=== PATIENT | female | born 1950 | race African-American/Black ===

== ENCOUNTER 2022-05-20 05:24 | Inpatient (IN) | payer MEDICARE, OTHER ==
[~2022-05-20] VITALS: Ht 154.9 cm; Wt 89.8 kg
[2022-05-20] VITALS (49 sets, daily range): BP systolic 93–197; BP diastolic 46–134
[~2022-05-20 05:24] MED LIST: ACTOS; ASPIRIN; FUROSEMIDE; GLYBURIDE; KLOR CON; PROTONIX; ROBAXIN; SINGULAIR; TRAMADOL; VICODIN
[2022-05-20] MEDS ORDERED: SODIUM CHLORIDE 0.9% 1,000 ML IV SCH (06:15)
[2022-05-20] MEDS ORDERED: GENTAMICIN SULF 40MG/ML 2ML VIAL ONE (06:49)
[2022-05-20] MEDS ORDERED: THROMBIN (BOVINE) 5000 UNITS/VIAL TOP ONE (06:49)
[2022-05-20] MEDS ORDERED: LIDOCAINE 2%/EPINEPHRINE 1:200,000 20 ML VIAL INJ ONE (06:49)
[2022-05-20] MEDS ORDERED: DEXAMETHASONE 4MG/ML 1ML VIAL ONE (06:52)
[2022-05-20] MEDS ORDERED: ONDANSETRON HCL 4MG/2ML INJ ONE (06:52)
[2022-05-20] MEDS ORDERED: GLYCOPYRROLATE 0.2 MG/ML 2ML VIAL ONE ×3 (06:53→10:24)
[2022-05-20] MEDS ORDERED: NEOSTIGMINE METHYLSULFATE 1MG/ML 10 ML VIAL ONE (06:53)
[2022-05-20] MEDS ORDERED: PROPOFOL 200MG/20ML VIAL IV ONE (06:53)
[2022-05-20] MEDS ORDERED: ROCURONIUM BROMIDE 10MG/ML VIAL 5ML IV ONE (06:53)
[2022-05-20] MEDS ORDERED: MIDAZOLAM HCL 2 MG/2 ML VIAL ONE (06:54)
[2022-05-20] MEDS ORDERED: FENTANYL CITRATE/PF 50MCG/ML 2ML VIAL ONE (06:54)
[2022-05-20] MEDS ORDERED: FLUT1BLS3 IH (07:07)
[2022-05-20] MEDS ORDERED: PRED5TAB PO (07:07)
[2022-05-20] MEDS ORDERED: PANT40TA51 PO (07:07)
[2022-05-20] MEDS ORDERED: ALBU18HF2 IH (07:07)
[2022-05-20] MEDS ORDERED: GLIP5TAB12 PO (07:07)
[2022-05-20] MEDS ORDERED: METH4TAB PO (07:07)
[2022-05-20] MEDS ORDERED: ATOR10TA69 PO (07:07)
[2022-05-20] MEDS ORDERED: LINA5TAB PO (07:07)
[2022-05-20] MEDS ORDERED: AMLO5TAB88 PO (07:07)
[2022-05-20] MEDS ORDERED: LOSA100T32 PO (07:07)
[2022-05-20] MEDS ORDERED: LIDOCAINE HCL 1% 50ML VIAL (10MG/ML) ONE (07:24)
[2022-05-20] MEDS ORDERED: HYDROMORPHONE HCL/PF 2MG/ML CPJ ONE (08:05)
[2022-05-20] MEDS ORDERED: MORPHINE SULFATE 4 MG/ML CPJ (NOT FOR IM USE) IV PRN (10:15)
[2022-05-20] MEDS: DEXT 5%/LACTATED RINGERS 1,000 ML IV SCH ×2 (11:24→22:07)
[2022-05-20] MEDS: DEXAMETHASONE 4MG/ML 1ML VIAL IV SCH ×3 (11:43→22:45)
[2022-05-20] MEDS ORDERED: NALOXONE INJ IV PRN (11:45)
[2022-05-20] MEDS ORDERED: DEXTROSE 50% WATER 50ML SYRINGE IV PRN (12:30)
[2022-05-20] MEDS ORDERED: IPRATROPIUM/ALBUTEROL 0.5-3(2.5)MG/3ML NEB HHN PRN (12:30)
[2022-05-20] MEDS: HYDROMORPHONE PCA 10MG/50ML IV PRN (12:32)
[2022-05-20] MEDS: NICARDIPINE 100 MG in SODIUM CHLORIDE 0.9% 60 ML IV PRN (12:35)
[2022-05-20] MEDS: ONDANSETRON INJ IV PRN ×2 (13:42→23:50)
[2022-05-20] MEDS ORDERED: CEFAZOLIN 1000MG PREMIX 50 ML IV SCH (14:00)
[2022-05-20] MEDS ORDERED: CEFAZOLIN SODIUM 1000MG/VIAL IV SCH (14:00)
[2022-05-20] MEDS: LOSARTAN POTASSIUM 50 MG TABLET PO SCH (17:20)
[2022-05-20] MEDS: BLOOD SUGAR DIAGNOSTIC STRIP TEST SCH ×2 (17:20→20:32)
[2022-05-20] MEDS: INSULIN LISPRO 100 UNITS/ML SUBCUT SCH ×2 (17:21→20:32)
[2022-05-20] MEDS: IPRATROPIUM/ALBUTEROL 0.5-3(2.5)MG/3ML NEB HHN SCH (19:56)
[2022-05-20] MEDS: PANTOPRAZOLE 40MG DR TABLET PO SCH (20:31)
[2022-05-20] MEDS: GUAIFENESIN 600MG ER TABLET PO SCH (20:31)
[2022-05-20] MEDS: ATORVASTATIN CALCIUM 10MG TABLET PO SCH (20:31)
[2022-05-20] MEDS: CEFAZOLIN 1000MG PREMIX 50 ML IV SCH (22:46)
[2022-05-20] MEDS ORDERED: MORPHINE SULFATE 4 MG/ML CPJ (NOT FOR IM USE) IV NR (23:45)
[2022-05-21] VITALS (46 sets, daily range): BP systolic 107–162; BP diastolic 42–109
[2022-05-21] MEDS ORDERED: ACETAMINOPHEN 325MG TABLET PO PRN (00:15)
[2022-05-21] MEDS: IPRATROPIUM/ALBUTEROL 0.5-3(2.5)MG/3ML NEB HHN SCH ×4 (01:16→20:15)
[2022-05-21] MEDS: HYDROMORPHONE PCA 10MG/50ML IV PRN (02:31)
[2022-05-21] MEDS: DIPHENHYDRAMINE 50MG/ML VIAL IV PRN (02:35)
[2022-05-21] MEDS: NICARDIPINE 100 MG in SODIUM CHLORIDE 0.9% 60 ML IV PRN (04:39)
[2022-05-21 05:59] LABS: HEMATOCRIT. 32.7 % (36.0-48.0); HEMOGLOBIN. 10.1 g/dL (12.0-16.0); MEAN CORPUSCULAR HEMOGLOBIN 22.7 pg (28.0-32.0); MEAN CORPUSCULAR VOLUME 73.4 fL (81.0-99.0); PLATELET 258 x1000/uL (130-400); RED BLOOD CELL COUNT 4.46 mill/uL (4.2-5.4)
[2022-05-21 06:07] LABS: CHLORIDE 102 mEq/L (98-107)
[2022-05-21] MEDS: DEXAMETHASONE 4MG/ML 1ML VIAL IV SCH ×4 (06:09→23:14)
[2022-05-21] MEDS: CEFAZOLIN 1000MG PREMIX 50 ML IV SCH ×3 (06:09→23:49)
[2022-05-21] MEDS: BLOOD SUGAR DIAGNOSTIC STRIP TEST SCH ×4 (06:09→21:00)
[2022-05-21] MEDS: INSULIN LISPRO 100 UNITS/ML SUBCUT SCH ×4 (06:10→22:22)
[2022-05-21 06:36] LABS: HDL CHOLESTEROL 49 mg/dL (40-59); LDL CHOLESTEROL 48 mg/dL (5-100)
[2022-05-21] MEDS: LOSARTAN POTASSIUM 50 MG TABLET PO SCH ×2 (08:38→17:08)
[2022-05-21] MEDS: DEXT 5%/LACTATED RINGERS 1,000 ML IV SCH (08:38)
[2022-05-21] MEDS: GUAIFENESIN 600MG ER TABLET PO SCH ×2 (08:38→21:00)
[2022-05-21] MEDS ORDERED: AMLODIPINE 5MG TABLET PO SCH (09:00)
[2022-05-21] MEDS ORDERED: HYDROCODONE/ACETAMINOPHEN 10/325MG TABLET PO PRN (09:30)
[2022-05-21] MEDS ORDERED: POTASSIUM CHLORIDE 20MEQ/PACKET PO NR (09:30)
[2022-05-21] MEDS ORDERED: NALOXONE HCL 0.4MG/ML VIAL IV PRN (09:45)
[2022-05-21] MEDS: HYDROCODONE/ACETAMINOPHEN 10/325MG TABLET PO PRN ×2 (10:13→17:08)
[2022-05-21] MEDS: CLONIDINE 0.1MG TABLET PO SCH ×3 (10:16→22:46)
[2022-05-21] MEDS ORDERED: SIMETHICONE 80MG TABLET CHEW PO PRN (11:15)
[2022-05-21] MEDS: MORPHINE SULFATE 2 MG/ML CPJ (NOT FOR IM USE) IV PRN ×2 (11:46→23:15)
[2022-05-21] MEDS: ONDANSETRON INJ IV PRN (15:42)
[2022-05-21] MEDS: HYDROCODONE/ACETAMINOPHEN 5/325MG TABLET PO PRN (15:52)
[2022-05-21] MEDS: AMLODIPINE 5MG TABLET PO SCH (17:08)
[2022-05-21] MEDS ORDERED: ONDANSETRON HCL 4MG/2ML INJ IV NR (18:00)
[2022-05-21] MEDS ORDERED: METOCLOPRAMIDE HCL 5MG TABLET PO PRN (18:00)
[2022-05-21] MEDS: METOCLOPRAMIDE HCL 10MG/2ML VIAL IV PRN (20:00)
[2022-05-21] MEDS: PANTOPRAZOLE 40MG DR TABLET PO SCH (21:00)
[2022-05-21] MEDS ORDERED: INSULIN GLARGINE 100 UNITS/ML SUBCUT SCH (22:00)
[2022-05-21 22:08] LABS: PLATELET ESTIMATE NORMAL
[2022-05-21] MEDS: ATORVASTATIN CALCIUM 10MG TABLET PO SCH (22:45)
[2022-05-22] MEDS: HYDROCODONE/ACETAMINOPHEN 10/325MG TABLET PO PRN ×2 (01:27→18:16)
[2022-05-22] MEDS: IPRATROPIUM/ALBUTEROL 0.5-3(2.5)MG/3ML NEB HHN SCH (01:54)
[2022-05-22] MEDS: CEFAZOLIN 1000MG PREMIX 50 ML IV SCH ×3 (05:22→22:49)
[2022-05-22] MEDS: DEXAMETHASONE 4MG/ML 1ML VIAL IV SCH ×2 (05:22→12:15)
[2022-05-22] MEDS: CLONIDINE 0.1MG TABLET PO SCH (05:23)
[2022-05-22] MEDS: BLOOD SUGAR DIAGNOSTIC STRIP TEST SCH ×4 (07:20→21:00)
[2022-05-22 08:00] VITALS: BP_SYST 110; BP_SYST 125; BP_DIAS 50; BP_DIAS 64
[2022-05-22 08:26] LABS: CHLORIDE 97 mEq/L (98-107)
[2022-05-22] MEDS: GUAIFENESIN 600MG ER TABLET PO SCH ×2 (09:09→21:00)
[2022-05-22] MEDS: INSULIN LISPRO 100 UNITS/ML SUBCUT SCH ×4 (09:10→21:00)
[2022-05-22] MEDS: INSULIN GLARGINE 100 UNITS/ML SUBCUT SCH ×2 (09:37→22:00)
[2022-05-22 11:21] LABS: BASOPHILS % 0.1 % (0.0-2.0); HEMATOCRIT. 32.6 % (36.0-48.0); HEMOGLOBIN. 10.3 g/dL (12.0-16.0); LYMPHOCYTES % 7.8 % (20.0-50.0); MEAN CORPUSCULAR HEMOGLOBIN 22.8 pg (28.0-32.0); MEAN CORPUSCULAR VOLUME 72.3 fL (81.0-99.0); MEAN PLATELET VOLUME 9.2 fl (7.4-10.4); MONOCYTES % 4.3 % (2.0-8.0); NEUTROPHILS % 87.8 % (40.0-76.0); PLATELET 280 x1000/uL (130-400); RED BLOOD CELL COUNT 4.51 mill/uL (4.2-5.4); RED CELL DISTRIBUTION WIDTH 16.1 % (11.6-14.6)
[2022-05-22 12:00] VITALS: BP 158/81
[2022-05-22] MEDS: HYDROCODONE/ACETAMINOPHEN 5/325MG TABLET PO PRN (12:14)
[2022-05-22] MEDS: LOSARTAN POTASSIUM 50 MG TABLET PO SCH ×2 (12:15→17:35)
[2022-05-22] MEDS: AMLODIPINE 5MG TABLET PO SCH ×2 (12:15→17:35)
[2022-05-22] MEDS: CLONIDINE 0.2MG TABLET PO SCH ×2 (13:05→22:00)
[2022-05-22 16:00] VITALS: BP 123/78
[2022-05-22] MEDS: DOCUSATE SODIUM 100MG CAPSULE PO SCH (17:00)
[2022-05-22] MEDS: POLYETHYLENE GLYCOL 3350 (17GM) 1 DOSE PACK PO SCH (17:35)
[2022-05-22 20:00] VITALS: BP 126/96
[2022-05-22] MEDS: ATORVASTATIN CALCIUM 10MG TABLET PO SCH (21:00)
[2022-05-22] MEDS: PANTOPRAZOLE 40MG DR TABLET PO SCH (21:00)
[2022-05-23] VITALS: BP 130/81
[2022-05-23] MEDS: HYDROCODONE/ACETAMINOPHEN 10/325MG TABLET PO PRN ×2 (00:26→21:36)
[2022-05-23] MEDS: DIPHENHYDRAMINE 50MG/ML VIAL IV PRN ×2 (03:00→20:53)
[2022-05-23 04:00] VITALS: BP 128/80
[2022-05-23] MEDS: CLONIDINE 0.2MG TABLET PO SCH ×3 (06:00→20:46)
[2022-05-23] MEDS: BLOOD SUGAR DIAGNOSTIC STRIP TEST SCH ×4 (06:20→20:46)
[2022-05-23 07:30] LABS: BASOPHILS % 0.1 % (0.0-2.0); HEMATOCRIT. 33.9 % (36.0-48.0); HEMOGLOBIN. 10.7 g/dL (12.0-16.0); LYMPHOCYTES % 11.8 % (20.0-50.0); MEAN CORPUSCULAR HEMOGLOBIN 22.9 pg (28.0-32.0); MEAN CORPUSCULAR VOLUME 72.2 fL (81.0-99.0); MEAN PLATELET VOLUME 8.7 fl (7.4-10.4); MONOCYTES % 10.3 % (2.0-8.0); NEUTROPHILS % 77.8 % (40.0-76.0); PLATELET 294 x1000/uL (130-400); RED BLOOD CELL COUNT 4.69 mill/uL (4.2-5.4); RED CELL DISTRIBUTION WIDTH 15.9 % (11.6-14.6)
[2022-05-23 07:39] LABS: CHLORIDE 101 mEq/L (98-107)
[2022-05-23] MEDS: INSULIN LISPRO 100 UNITS/ML SUBCUT SCH ×4 (07:50→20:46)
[2022-05-23 08:00] VITALS: BP 178/62
[2022-05-23] MEDS: ONDANSETRON INJ IV PRN (08:11)
[2022-05-23] MEDS: LOSARTAN POTASSIUM 50 MG TABLET PO SCH ×2 (08:25→17:00)
[2022-05-23] MEDS: AMLODIPINE 5MG TABLET PO SCH ×2 (08:26→17:00)
[2022-05-23] MEDS: POLYETHYLENE GLYCOL 3350 (17GM) 1 DOSE PACK PO SCH (09:00)
[2022-05-23] MEDS: GUAIFENESIN 600MG ER TABLET PO SCH ×2 (09:00→20:50)
[2022-05-23] MEDS: DOCUSATE SODIUM 100MG CAPSULE PO SCH ×2 (09:00→17:00)
[2022-05-23] MEDS ORDERED: NA PHOS,M-B/NA PHOS,DI-BA ENEMA 118ML PR ONE (09:45)
[2022-05-23] MEDS: INSULIN GLARGINE 100 UNITS/ML SUBCUT SCH ×2 (10:00→20:58)
[2022-05-23] MEDS ORDERED: POTASSIUM CHLORIDE 20MEQ/PACKET PO ONE (10:15)
[2022-05-23] MEDS: MORPHINE SULFATE 2 MG/ML CPJ (NOT FOR IM USE) IV PRN ×4 (10:51→23:46)
[2022-05-23] MEDS: METOCLOPRAMIDE HCL 10MG/2ML VIAL IV PRN (11:52)
[2022-05-23] MEDS ORDERED: HYDRALAZINE 20MG/ML VIAL IV SCH (13:00)
[2022-05-23] MEDS: SODIUM CHLORIDE 0.45% 1,000 ML IV SCH (13:02)
[2022-05-23] MEDS: HYDRALAZINE 10 MG in SODIUM CHLORIDE 0.9% 49.5 ML IV SCH ×2 (13:56→21:39)
[2022-05-23 16:00] VITALS: BP 150/68
[2022-05-23] MEDS ORDERED: POTASSIUM CHLORIDE INJ 40 MEQ in DEXT 5% WATER 500 ML IV NR ×2 (16:30→18:00)
[2022-05-23] MEDS ORDERED: BISACODYL 10MG SUPP PR PRN (19:15)
[2022-05-23] MEDS ORDERED: SENNOSIDES 8.6MG TABLET PO PRN (19:15)
[2022-05-23 20:00] VITALS: BP 138/73
[2022-05-23] MEDS: ATORVASTATIN CALCIUM 10MG TABLET PO SCH (20:50)
[2022-05-23] MEDS: PANTOPRAZOLE 40MG DR TABLET PO SCH (20:50)
[2022-05-23] MEDS: METOCLOPRAMIDE HCL 10MG/2ML VIAL IV SCH (23:49)
[2022-05-24] VITALS: BP 152/65
[2022-05-24] MEDS: SODIUM CHLORIDE 0.45% 1,000 ML IV SCH ×2 (00:09→13:06)
[2022-05-24] MEDS: HYDROCODONE/ACETAMINOPHEN 5/325MG TABLET PO PRN (02:30)
[2022-05-24 04:00] VITALS: BP 163/61
[2022-05-24] MEDS: ONDANSETRON INJ IV PRN (04:08)
[2022-05-24] MEDS: MORPHINE SULFATE 2 MG/ML CPJ (NOT FOR IM USE) IV PRN ×3 (04:08→19:08)
[2022-05-24] MEDS: METOCLOPRAMIDE HCL 10MG/2ML VIAL IV SCH ×3 (05:25→18:35)
[2022-05-24] MEDS: HYDRALAZINE 10 MG in SODIUM CHLORIDE 0.9% 49.5 ML IV SCH (05:26)
[2022-05-24] MEDS: CLONIDINE 0.2MG TABLET PO SCH (05:26)
[2022-05-24] MEDS: HYDROCODONE/ACETAMINOPHEN 10/325MG TABLET PO PRN ×3 (05:39→21:30)
[2022-05-24] MEDS: BLOOD SUGAR DIAGNOSTIC STRIP TEST SCH ×4 (07:20→21:33)
[2022-05-24 08:00] VITALS: BP 107/55
[2022-05-24] MEDS ORDERED: LACTULOSE 20G/30ML UDC PO NR (08:00)
[2022-05-24] MEDS: DOCUSATE SODIUM 100MG CAPSULE PO SCH ×3 (08:27→18:01)
[2022-05-24] MEDS: POLYETHYLENE GLYCOL 3350 (17GM) 1 DOSE PACK PO SCH (08:28)
[2022-05-24] MEDS: LOSARTAN POTASSIUM 50 MG TABLET PO SCH ×2 (08:29→18:01)
[2022-05-24] MEDS: INSULIN LISPRO 100 UNITS/ML SUBCUT SCH ×4 (08:30→21:31)
[2022-05-24 08:42] LABS: BASOPHILS % 0.1 % (0.0-2.0); EOSINOPHILS % 0.2 % (0.0-5.0); HEMATOCRIT. 33.9 % (36.0-48.0); HEMOGLOBIN. 10.4 g/dL (12.0-16.0); LYMPHOCYTES % 15.9 % (20.0-50.0); MEAN CORPUSCULAR HEMOGLOBIN 22.5 pg (28.0-32.0); MEAN CORPUSCULAR VOLUME 73.1 fL (81.0-99.0); MEAN PLATELET VOLUME 8.8 fl (7.4-10.4); NEUTROPHILS % 74.8 % (40.0-76.0); PLATELET 266 x1000/uL (130-400); RED BLOOD CELL COUNT 4.64 mill/uL (4.2-5.4); RED CELL DISTRIBUTION WIDTH 15.6 % (11.6-14.6)
[2022-05-24 08:48] LABS: CHLORIDE 100 mEq/L (98-107)
[2022-05-24] MEDS: AMLODIPINE 5MG TABLET PO SCH ×2 (09:00→18:10)
[2022-05-24] MEDS: GUAIFENESIN 600MG ER TABLET PO SCH ×2 (09:47→18:11)
[2022-05-24] MEDS: INSULIN GLARGINE 100 UNITS/ML SUBCUT SCH ×2 (09:54→21:32)
[2022-05-24 12:00] VITALS: BP 114/59
[2022-05-24] MEDS: CLONIDINE 0.1MG TABLET PO SCH ×2 (15:00→21:34)
[2022-05-24 16:00] VITALS: BP 120/54
[2022-05-24] MEDS ORDERED: POTASSIUM CHLORIDE 20MEQ/PACKET PO NR (16:45)
[2022-05-24] MEDS ORDERED: SORBITOL 70% SOLN 30ML PO NR (18:00)
[2022-05-24 20:00] VITALS: BP 101/45
[2022-05-24] MEDS: ATORVASTATIN CALCIUM 10MG TABLET PO SCH (21:28)
[2022-05-24] MEDS: PANTOPRAZOLE 40MG DR TABLET PO SCH (21:28)
[2022-05-24] MEDS: DIPHENHYDRAMINE 50MG/ML VIAL IV PRN (21:50)
[2022-05-25] VITALS: BP 126/72
[2022-05-25] MEDS: MORPHINE SULFATE 2 MG/ML CPJ (NOT FOR IM USE) IV PRN ×3 (00:06→10:55)
[2022-05-25] MEDS: METOCLOPRAMIDE HCL 10MG/2ML VIAL IV SCH ×4 (00:08→17:42)
[2022-05-25] MEDS: HYDROCODONE/ACETAMINOPHEN 10/325MG TABLET PO PRN ×4 (03:05→17:35)
[2022-05-25 04:00] VITALS: BP 127/66
[2022-05-25] MEDS: CLONIDINE 0.1MG TABLET PO SCH ×2 (06:21→14:00)
[2022-05-25] MEDS: DIPHENHYDRAMINE 50MG/ML VIAL IV PRN ×2 (06:25→17:41)
[2022-05-25] MEDS: INSULIN LISPRO 100 UNITS/ML SUBCUT SCH ×3 (06:44→17:41)
[2022-05-25] MEDS: BLOOD SUGAR DIAGNOSTIC STRIP TEST SCH ×3 (06:44→17:35)
[2022-05-25 07:43] LABS: BASOPHILS % 0.1 % (0.0-2.0); EOSINOPHILS % 0.6 % (0.0-5.0); HEMATOCRIT. 33.3 % (36.0-48.0); HEMOGLOBIN. 10.6 g/dL (12.0-16.0); LYMPHOCYTES % 16.9 % (20.0-50.0); MEAN CORPUSCULAR HEMOGLOBIN 23.3 pg (28.0-32.0); MEAN CORPUSCULAR VOLUME 73.2 fL (81.0-99.0); MEAN PLATELET VOLUME 8.4 fl (7.4-10.4); MONOCYTES % 11.1 % (2.0-8.0); NEUTROPHILS % 71.3 % (40.0-76.0); PLATELET 264 x1000/uL (130-400); RED BLOOD CELL COUNT 4.55 mill/uL (4.2-5.4); RED CELL DISTRIBUTION WIDTH 15.7 % (11.6-14.6)
[2022-05-25 07:51] LABS: CHLORIDE 102 mEq/L (98-107)
[2022-05-25 08:00] VITALS: BP 122/51
[2022-05-25] MEDS: DOCUSATE SODIUM 100MG CAPSULE PO SCH ×2 (08:37→17:34)
[2022-05-25] MEDS: GUAIFENESIN 600MG ER TABLET PO SCH ×2 (08:37→20:17)
[2022-05-25] MEDS: AMLODIPINE 5MG TABLET PO SCH ×2 (08:38→17:34)
[2022-05-25] MEDS: LOSARTAN POTASSIUM 50 MG TABLET PO SCH ×2 (08:38→17:34)
[2022-05-25] MEDS: POLYETHYLENE GLYCOL 3350 (17GM) 1 DOSE PACK PO SCH (09:00)
[2022-05-25] MEDS: INSULIN GLARGINE 100 UNITS/ML SUBCUT SCH (09:35)
[2022-05-25 12:00] VITALS: BP 108/73
[2022-05-25] MEDS: HYDROCODONE/ACETAMINOPHEN 5/325MG TABLET PO PRN (15:05)
[2022-05-25 16:00] VITALS: BP 133/59
[2022-05-25 19:16] VITALS: BP 133/59
[2022-05-25] MEDS: PANTOPRAZOLE 40MG DR TABLET PO SCH (20:16)
[2022-05-25] MEDS: ATORVASTATIN CALCIUM 10MG TABLET PO SCH (20:16)
== END 2022-05-25 20:49 | DRG 459 ==
LOC: OR 05:24 → MICUNO 05:25 → 6EST 05-21 21:02
PROVIDERS: ADMIT Internal Medicine; ATTEND Internal Medicine
PROC: 0RG60AJ Fusion of Thoracic Vertebral Joint with Interbody Fusion Device, Posterior Approach, Anterior Column, Open Approach (ICD-10-PCS; principal; 2022-05-20)
DX: M48.04 Spinal stenosis, thoracic region (principal); G82.50 Quadriplegia, unspecified; F05 Delirium due to known physiological condition; M47.14 Other spondylosis with myelopathy, thoracic region; M51.04 Intervertebral disc disorders with myelopathy, thoracic region; I10 Essential (primary) hypertension; E78.5 Hyperlipidemia, unspecified; E66.09 Other obesity due to excess calories; K21.9 Gastro-esophageal reflux disease without esophagitis; R53.81 Other malaise; Z20.822 Contact with and (suspected) exposure to COVID-19; R26.9 Unspecified abnormalities of gait and mobility; E11.9 Type 2 diabetes mellitus without complications; J45.909 Unspecified asthma, uncomplicated; K56.41 Fecal impaction; Z79.4 Long term (current) use of insulin; Z79.84 Long term (current) use of oral hypoglycemic drugs; Z79.899 Other long term (current) drug therapy; Z82.3 Family history of stroke; Z82.49 Family history of ischemic heart disease and other diseases of the circulatory system; Z99.3 Dependence on wheelchair; Z71.3 Dietary counseling and surveillance; Z68.37 Body mass index [BMI] 37.0-37.9, adult
CPT/HCPCS: 36415; 71045; 72070; 72146; 74018; 76000; 80048; 80061; 82962; 83036; 84439; 84443; 84481; 85025; 86850; 86900; 87426; 93005; 94640; 97110; 97162; 97166; 97530; C1713; C1893; C9803; J0360; J0690; J1100; J1170; J1200; J1580; J1815; J2250; J2270; J2405; J2704; J2710; J2765; J3010; J3480; J3490; J7050; J7060; J7121

== ENCOUNTER 2022-05-25 20:43 | Inpatient (IN) | payer MEDICARE, OTHER ==
[~2022-05-25] VITALS: Ht 154.9 cm; Wt 89.8 kg
[~2022-05-25 20:43] MED LIST changes: -ACTOS; +ALBU18HF2 IH; +AMLO5TAB88 PO; -ASPIRIN; +ATOR10TA69 PO; +FLUT1BLS3 IH; -FUROSEMIDE; +GLIP5TAB12 PO; -GLYBURIDE; -KLOR CON; +LINA5TAB PO; +LOSA100T32 PO; +METH4TAB PO; +PANT40TA51 PO; +PRED5TAB PO; -PROTONIX; -ROBAXIN; -SINGULAIR; -TRAMADOL; -VICODIN
[2022-05-25 21:00] VITALS: BP 135/61
[2022-05-25] MEDS ORDERED: NALOXONE HCL 0.4MG/ML VIAL IV PRN (23:00)
[2022-05-25] MEDS: HYDROCODONE/ACETAMINOPHEN 10/325MG TABLET PO PRN (23:11)
[2022-05-25] MEDS: CLONIDINE 0.1MG TABLET PO SCH (23:12)
[2022-05-26] MEDS: INSULIN GLARGINE 100 UNITS/ML SUBCUT SCH ×3 (00:34→22:00)
[2022-05-26] MEDS ORDERED: DIPHENHYDRAMINE 50MG/ML VIAL IV PRN (01:30)
[2022-05-26] MEDS ORDERED: METOCLOPRAMIDE HCL 10MG/2ML VIAL IV PRN (01:30)
[2022-05-26] MEDS ORDERED: SIMETHICONE 80MG TABLET CHEW PO PRN (01:30)
[2022-05-26] MEDS ORDERED: MORPHINE SULFATE 2 MG/ML CPJ (NOT FOR IM USE) IV PRN (01:30)
[2022-05-26] MEDS ORDERED: SENNOSIDES 8.6MG TABLET PO PRN (01:30)
[2022-05-26] MEDS ORDERED: NALOXONE HCL 0.4 MG/ML 1ML VIAL IV PRN (01:30)
[2022-05-26] MEDS ORDERED: ONDANSETRON HCL 4MG/2ML INJ IV PRN (01:30)
[2022-05-26] MEDS ORDERED: BISACODYL 10MG SUPP PR PRN (01:30)
[2022-05-26] MEDS ORDERED: IPRATROPIUM/ALBUTEROL 0.5-3(2.5)MG/3ML NEB HHN PRN (02:00)
[2022-05-26] MEDS: ACETAMINOPHEN 325MG TABLET PO PRN (04:18)
[2022-05-26] MEDS: HYDROCODONE/ACETAMINOPHEN 10/325MG TABLET PO PRN ×3 (05:33→21:14)
[2022-05-26 06:01] LABS: BASOPHILS % 0.3 % (0.0-2.0); EOSINOPHILS % 0.9 % (0.0-5.0); HEMATOCRIT. 35.4 % (36.0-48.0); HEMOGLOBIN. 10.7 g/dL (12.0-16.0); LYMPHOCYTES % 19.7 % (20.0-50.0); MEAN CORPUSCULAR HEMOGLOBIN 22.9 pg (28.0-32.0); MEAN CORPUSCULAR VOLUME 75.7 fL (81.0-99.0); MEAN PLATELET VOLUME 8.6 fl (7.4-10.4); MONOCYTES % 13.2 % (2.0-8.0); NEUTROPHILS % 65.9 % (40.0-76.0); PLATELET 233 x1000/uL (130-400); RED BLOOD CELL COUNT 4.67 mill/uL (4.2-5.4); RED CELL DISTRIBUTION WIDTH 15.6 % (11.6-14.6)
[2022-05-26 06:06] LABS: CHLORIDE 102 mEq/L (98-107)
[2022-05-26] MEDS: BLOOD SUGAR DIAGNOSTIC STRIP TEST SCH ×4 (06:21→21:00)
[2022-05-26] MEDS: CLONIDINE 0.1MG TABLET PO SCH ×3 (06:21→22:00)
[2022-05-26] MEDS: METOCLOPRAMIDE HCL 5MG TABLET PO SCH ×3 (06:21→18:02)
[2022-05-26] MEDS ORDERED: BLOOD SUGAR DIAGNOSTIC STRIP TEST SCH (06:30)
[2022-05-26] MEDS ORDERED: DEXTROSE 50% WATER 50ML SYRINGE IV PRN (06:30)
[2022-05-26 08:00] VITALS: BP 108/57
[2022-05-26] MEDS: AMLODIPINE 5MG TABLET PO SCH ×3 (09:00→17:42)
[2022-05-26] MEDS: INSULIN LISPRO 100 UNITS/ML SUBCUT SCH ×4 (09:00→21:00)
[2022-05-26] MEDS: DOCUSATE SODIUM 100MG CAPSULE PO SCH ×2 (09:59→17:41)
[2022-05-26] MEDS: POLYETHYLENE GLYCOL 3350 (17GM) 1 DOSE PACK PO SCH (09:59)
[2022-05-26] MEDS: LOSARTAN POTASSIUM 50 MG TABLET PO SCH ×2 (09:59→17:42)
[2022-05-26] MEDS: GUAIFENESIN 600MG ER TABLET PO SCH ×2 (09:59→21:05)
[2022-05-26] MEDS: HYDROCODONE/ACETAMINOPHEN 5/325MG TABLET PO PRN ×2 (10:35→17:43)
[2022-05-26 20:19] VITALS: BP 106/21
[2022-05-26] MEDS: ATORVASTATIN CALCIUM 10MG TABLET PO SCH (21:05)
[2022-05-26] MEDS: PANTOPRAZOLE 40MG DR TABLET PO SCH (21:17)
[2022-05-27] MEDS: METOCLOPRAMIDE HCL 5MG TABLET PO SCH ×4 (00:02→18:27)
[2022-05-27] MEDS: HYDROCODONE/ACETAMINOPHEN 5/325MG TABLET PO PRN ×2 (01:53→14:05)
[2022-05-27] MEDS: CLONIDINE 0.1MG TABLET PO SCH ×3 (06:00→20:56)
[2022-05-27 06:30] LABS: CHLORIDE 99 mEq/L (98-107)
[2022-05-27] MEDS: BLOOD SUGAR DIAGNOSTIC STRIP TEST SCH ×4 (06:30→21:23)
[2022-05-27 06:51] LABS: TOTAL IRON BINDING CAPACITY 376 ug/dL (250-450)
[2022-05-27 06:58] LABS: FOLIC ACID (FOLATE) SERUM 17.4 ng/mL (>5.38)
[2022-05-27 08:00] VITALS: BP 126/56
[2022-05-27] MEDS: DOCUSATE SODIUM 100MG CAPSULE PO SCH ×2 (08:49→18:27)
[2022-05-27] MEDS: POLYETHYLENE GLYCOL 3350 (17GM) 1 DOSE PACK PO SCH (08:50)
[2022-05-27] MEDS: LOSARTAN POTASSIUM 50 MG TABLET PO SCH ×2 (08:50→18:28)
[2022-05-27] MEDS: GUAIFENESIN 600MG ER TABLET PO SCH ×2 (08:50→20:56)
[2022-05-27] MEDS: AMLODIPINE 5MG TABLET PO SCH ×2 (08:51→18:28)
[2022-05-27] MEDS: HYDROCODONE/ACETAMINOPHEN 10/325MG TABLET PO PRN ×2 (08:52→18:28)
[2022-05-27] MEDS: LIDOCAINE 5% PATCH TOP SCH (08:53)
[2022-05-27] MEDS: INSULIN LISPRO 100 UNITS/ML SUBCUT SCH ×4 (08:53→21:00)
[2022-05-27] MEDS: INSULIN GLARGINE 100 UNITS/ML SUBCUT SCH ×3 (10:59→21:25)
[2022-05-27 15:32] LABS: HEMATOCRIT. 31.6 % (36.0-48.0); MEAN CORPUSCULAR HEMOGLOBIN 23.1 pg (28.0-32.0); MEAN CORPUSCULAR VOLUME 72.7 fL (81.0-99.0); MEAN PLATELET VOLUME 8.2 fl (7.4-10.4); PLATELET 309 x1000/uL (130-400); RED BLOOD CELL COUNT 4.34 mill/uL (4.2-5.4); RED CELL DISTRIBUTION WIDTH 15.5 % (11.6-14.6)
[2022-05-27] MEDS: FERROUS SULFATE 325MG TABLET PO SCH (18:26)
[2022-05-27 20:10] VITALS: BP 138/46
[2022-05-27] MEDS: ATORVASTATIN CALCIUM 10MG TABLET PO SCH (20:55)
[2022-05-27] MEDS: PANTOPRAZOLE 40MG DR TABLET PO SCH (20:55)
[2022-05-27 23:55] LABS: PLATELET ESTIMATE NORMAL
[2022-05-28] MEDS: METOCLOPRAMIDE HCL 5MG TABLET PO SCH ×4 (00:25→18:04)
[2022-05-28] MEDS: HYDROCODONE/ACETAMINOPHEN 10/325MG TABLET PO PRN ×4 (00:26→17:55)
[2022-05-28] MEDS: BLOOD SUGAR DIAGNOSTIC STRIP TEST SCH ×4 (06:12→21:23)
[2022-05-28] MEDS: CLONIDINE 0.1MG TABLET PO SCH ×3 (06:34→21:24)
[2022-05-28 08:00] VITALS: BP 107/56
[2022-05-28] MEDS: INSULIN LISPRO 100 UNITS/ML SUBCUT SCH ×4 (09:00→21:00)
[2022-05-28] MEDS: GUAIFENESIN 600MG ER TABLET PO SCH ×2 (09:31→21:24)
[2022-05-28] MEDS: ASCORBIC ACID 500 MG TABLET PO SCH (09:31)
[2022-05-28] MEDS: FERROUS SULFATE 325MG TABLET PO SCH ×3 (09:31→18:04)
[2022-05-28] MEDS: LOSARTAN POTASSIUM 50 MG TABLET PO SCH ×2 (09:32→17:50)
[2022-05-28] MEDS: AMLODIPINE 5MG TABLET PO SCH ×2 (09:32→17:54)
[2022-05-28] MEDS: DOCUSATE SODIUM 100MG CAPSULE PO SCH ×2 (09:32→17:49)
[2022-05-28] MEDS: POLYETHYLENE GLYCOL 3350 (17GM) 1 DOSE PACK PO SCH (09:33)
[2022-05-28] MEDS: ACETAMINOPHEN 325MG TABLET PO PRN ×2 (09:33→21:26)
[2022-05-28] MEDS: LIDOCAINE 5% PATCH TOP SCH (09:33)
[2022-05-28 20:00] VITALS: BP 121/46
[2022-05-28] MEDS: ATORVASTATIN CALCIUM 10MG TABLET PO SCH (21:24)
[2022-05-28] MEDS: INSULIN GLARGINE 100 UNITS/ML SUBCUT SCH (21:49)
[2022-05-28] MEDS: ENOXAPARIN 30MG/0.3ML SYR SUBCUT SCH (21:52)
[2022-05-29] MEDS: METOCLOPRAMIDE HCL 5MG TABLET PO SCH ×4 (00:09→18:00)
[2022-05-29] MEDS: HYDROCODONE/ACETAMINOPHEN 10/325MG TABLET PO PRN ×5 (00:11→20:37)
[2022-05-29] MEDS: CLONIDINE 0.1MG TABLET PO SCH (06:35)
[2022-05-29] MEDS: BLOOD SUGAR DIAGNOSTIC STRIP TEST SCH ×4 (06:59→21:00)
[2022-05-29 08:00] VITALS: BP 141/91
[2022-05-29] MEDS: LIDOCAINE 5% PATCH TOP SCH (09:00)
[2022-05-29] MEDS: INSULIN LISPRO 100 UNITS/ML SUBCUT SCH ×4 (09:00→21:00)
[2022-05-29] MEDS: POLYETHYLENE GLYCOL 3350 (17GM) 1 DOSE PACK PO SCH (09:01)
[2022-05-29] MEDS: ASCORBIC ACID 500 MG TABLET PO SCH (09:01)
[2022-05-29] MEDS: FAMOTIDINE 20MG TABLET PO SCH ×2 (09:02→20:28)
[2022-05-29] MEDS: AMLODIPINE 5MG TABLET PO SCH ×2 (09:03→16:39)
[2022-05-29] MEDS: DOCUSATE SODIUM 100MG CAPSULE PO SCH ×2 (09:04→16:39)
[2022-05-29] MEDS: LOSARTAN POTASSIUM 50 MG TABLET PO SCH ×2 (09:04→16:39)
[2022-05-29] MEDS: FERROUS SULFATE 325MG TABLET PO SCH ×3 (09:04→16:39)
[2022-05-29] MEDS: ENOXAPARIN 30MG/0.3ML SYR SUBCUT SCH ×2 (09:05→20:41)
[2022-05-29] MEDS: GUAIFENESIN 600MG ER TABLET PO SCH ×2 (09:05→20:28)
[2022-05-29] MEDS: INSULIN GLARGINE 100 UNITS/ML SUBCUT SCH ×2 (09:19→22:16)
[2022-05-29] MEDS ORDERED: MORPHINE SULFATE 2 MG/ML CPJ (NOT FOR IM USE) IV NR (10:15)
[2022-05-29] MEDS ORDERED: MORPHINE SULFATE 2 MG/ML CPJ (NOT FOR IM USE) IV PRN (12:00)
[2022-05-29] MEDS ORDERED: LACTULOSE 20G/30ML UDC PO STA (15:01)
[2022-05-29] MEDS: CLONIDINE 0.2MG TABLET PO SCH ×2 (15:06→22:07)
[2022-05-29] MEDS ORDERED: BISACODYL 10MG SUPP PR PRN (15:15)
[2022-05-29 15:29] LABS: CLARITY URINE CLEAR (CLEAR); COLOR URINE YELLOW (YELLOW); KETONES URINE 1+ (NEGATIVE); LEUKOCYTE ESTERASE URINE NEGATIVE (NEGATIVE); NITRITE URINE NEGATIVE (NEGATIVE); OCCULT BLOOD URINE NEGATIVE (NEGATIVE); PROTEIN URINE NEGATIVE (NEGATIVE); SPECIFIC GRAVITY URINE 1.015 (1.005-1.030)
[2022-05-29] MEDS: ATORVASTATIN CALCIUM 10MG TABLET PO SCH (20:28)
[2022-05-30] MEDS: METOCLOPRAMIDE HCL 5MG TABLET PO SCH ×3 (00:39→12:23)
[2022-05-30] MEDS: ACETAMINOPHEN 325MG TABLET PO PRN (02:14)
[2022-05-30] MEDS: BLOOD SUGAR DIAGNOSTIC STRIP TEST SCH ×4 (06:30→21:32)
[2022-05-30] MEDS: CLONIDINE 0.2MG TABLET PO SCH ×3 (06:35→21:33)
[2022-05-30] MEDS: HYDROCODONE/ACETAMINOPHEN 10/325MG TABLET PO PRN ×2 (06:37→12:30)
[2022-05-30 08:00] VITALS: BP 111/50
[2022-05-30] MEDS: POLYETHYLENE GLYCOL 3350 (17GM) 1 DOSE PACK PO SCH (09:00)
[2022-05-30] MEDS: INSULIN LISPRO 100 UNITS/ML SUBCUT SCH ×4 (09:00→21:00)
[2022-05-30] MEDS: GUAIFENESIN 600MG ER TABLET PO SCH ×2 (09:54→21:32)
[2022-05-30] MEDS: ASCORBIC ACID 500 MG TABLET PO SCH (09:54)
[2022-05-30] MEDS: DOCUSATE SODIUM 100MG CAPSULE PO SCH ×2 (09:54→18:23)
[2022-05-30] MEDS: LOSARTAN POTASSIUM 50 MG TABLET PO SCH ×2 (09:55→18:23)
[2022-05-30] MEDS: FERROUS SULFATE 325MG TABLET PO SCH ×3 (09:55→18:23)
[2022-05-30] MEDS: FAMOTIDINE 20MG TABLET PO SCH ×2 (09:55→21:32)
[2022-05-30] MEDS: AMLODIPINE 5MG TABLET PO SCH ×2 (09:55→18:24)
[2022-05-30] MEDS: LIDOCAINE 5% PATCH TOP SCH (09:56)
[2022-05-30] MEDS: ENOXAPARIN 30MG/0.3ML SYR SUBCUT SCH ×2 (09:56→21:00)
[2022-05-30] MEDS: INSULIN GLARGINE 100 UNITS/ML SUBCUT SCH ×2 (10:48→22:00)
[2022-05-30] MEDS: GABAPENTIN 100MG CAPSULE PO SCH ×2 (14:07→21:33)
[2022-05-30] MEDS: LACTULOSE 20G/30ML UDC PO SCH ×2 (18:23→18:27)
[2022-05-30 20:00] VITALS: BP 113/51
[2022-05-30] MEDS: ATORVASTATIN CALCIUM 10MG TABLET PO SCH (21:32)
[2022-05-31] MEDS: HYDROCODONE/ACETAMINOPHEN 10/325MG TABLET PO PRN ×4 (04:55→21:08)
[2022-05-31] MEDS: CLONIDINE 0.2MG TABLET PO SCH ×3 (05:34→21:31)
[2022-05-31] MEDS: INSULIN LISPRO 100 UNITS/ML SUBCUT SCH ×4 (05:34→21:00)
[2022-05-31] MEDS: BLOOD SUGAR DIAGNOSTIC STRIP TEST SCH ×4 (05:34→21:17)
[2022-05-31] MEDS: GABAPENTIN 100MG CAPSULE PO SCH ×3 (05:34→21:07)
[2022-05-31 05:58] LABS: CHLORIDE 100 mEq/L (98-107)
[2022-05-31 06:49] LABS: HEMATOCRIT. 32.2 % (36.0-48.0); HEMOGLOBIN. 9.9 g/dL (12.0-16.0); MEAN CORPUSCULAR HEMOGLOBIN 22.9 pg (28.0-32.0); MEAN CORPUSCULAR VOLUME 74.4 fL (81.0-99.0); MEAN PLATELET VOLUME 8.7 fl (7.4-10.4); PLATELET 351 x1000/uL (130-400); RED BLOOD CELL COUNT 4.34 mill/uL (4.2-5.4); RED CELL DISTRIBUTION WIDTH 15.4 % (11.6-14.6)
[2022-05-31 08:00] VITALS: BP 103/57
[2022-05-31] MEDS: ENOXAPARIN 30MG/0.3ML SYR SUBCUT SCH ×2 (09:00→21:45)
[2022-05-31] MEDS: POLYETHYLENE GLYCOL 3350 (17GM) 1 DOSE PACK PO SCH (09:00)
[2022-05-31] MEDS: GUAIFENESIN 600MG ER TABLET PO SCH ×2 (09:09→21:00)
[2022-05-31] MEDS: ASCORBIC ACID 500 MG TABLET PO SCH (09:10)
[2022-05-31] MEDS: FERROUS SULFATE 325MG TABLET PO SCH ×3 (09:10→16:43)
[2022-05-31] MEDS: DOCUSATE SODIUM 100MG CAPSULE PO SCH ×2 (09:10→16:37)
[2022-05-31] MEDS: FAMOTIDINE 20MG TABLET PO SCH ×2 (09:10→21:08)
[2022-05-31] MEDS: LOSARTAN POTASSIUM 50 MG TABLET PO SCH ×2 (09:10→16:37)
[2022-05-31] MEDS: AMLODIPINE 5MG TABLET PO SCH ×2 (09:11→16:42)
[2022-05-31] MEDS: ACETAMINOPHEN 325MG TABLET PO PRN (09:12)
[2022-05-31] MEDS: LIDOCAINE 5% PATCH TOP SCH (09:13)
[2022-05-31] MEDS: INSULIN GLARGINE 100 UNITS/ML SUBCUT SCH ×2 (11:32→21:13)
[2022-05-31] MEDS: LACTULOSE 20G/30ML UDC PO SCH (16:37)
[2022-05-31 20:40] VITALS: BP 103/66
[2022-05-31 20:55] LABS: PLATELET ESTIMATE NORMAL
[2022-05-31] MEDS ORDERED: GUAIFENESIN 600MG ER TABLET PO SCH (21:00)
[2022-05-31] MEDS: ATORVASTATIN CALCIUM 10MG TABLET PO SCH (21:08)
[2022-06-01] MEDS: HYDROCODONE/ACETAMINOPHEN 10/325MG TABLET PO PRN ×4 (02:28→16:41)
[2022-06-01 06:29] VITALS: BP 112/68
[2022-06-01] MEDS: GABAPENTIN 100MG CAPSULE PO SCH ×3 (06:33→23:31)
[2022-06-01] MEDS: CLONIDINE 0.2MG TABLET PO SCH ×3 (06:33→23:30)
[2022-06-01] MEDS: BLOOD SUGAR DIAGNOSTIC STRIP TEST SCH ×4 (06:34→20:49)
[2022-06-01 08:00] VITALS: BP 90/56
[2022-06-01] MEDS: AMLODIPINE 5MG TABLET PO SCH ×2 (09:00→16:41)
[2022-06-01] MEDS: INSULIN LISPRO 100 UNITS/ML SUBCUT SCH ×4 (09:00→21:00)
[2022-06-01] MEDS: LOSARTAN POTASSIUM 50 MG TABLET PO SCH ×2 (09:00→16:40)
[2022-06-01] MEDS: INSULIN GLARGINE 100 UNITS/ML SUBCUT SCH ×2 (10:00→23:32)
[2022-06-01] MEDS: DOCUSATE SODIUM 100MG CAPSULE PO SCH ×2 (11:55→16:33)
[2022-06-01] MEDS: FAMOTIDINE 20MG TABLET PO SCH ×2 (11:55→21:00)
[2022-06-01] MEDS: POLYETHYLENE GLYCOL 3350 (17GM) 1 DOSE PACK PO SCH (11:55)
[2022-06-01] MEDS: GUAIFENESIN 600MG ER TABLET PO SCH ×2 (11:55→21:00)
[2022-06-01] MEDS: LACTULOSE 20G/30ML UDC PO SCH ×2 (11:55→16:33)
[2022-06-01] MEDS: ASCORBIC ACID 500 MG TABLET PO SCH (11:56)
[2022-06-01] MEDS: ENOXAPARIN 30MG/0.3ML SYR SUBCUT SCH (11:56)
[2022-06-01] MEDS: FERROUS SULFATE 325MG TABLET PO SCH ×3 (11:58→16:40)
[2022-06-01] MEDS: METHYL SALICYLATE/MENTHOL CREAM 85GM TOP PRN (11:58)
[2022-06-01] MEDS: LIDOCAINE 5% PATCH TOP SCH (11:58)
[2022-06-01 19:49] VITALS: BP 110/71
[2022-06-01] MEDS: ATORVASTATIN CALCIUM 10MG TABLET PO SCH (20:48)
[2022-06-01] MEDS ORDERED: MELATONIN 3MG TABLET PO SCH (21:00)
[2022-06-02] MEDS ORDERED: DIPHENHYDRAMINE 25MG CAPSULE PO PRN
[2022-06-02] MEDS: ENOXAPARIN 30MG/0.3ML SYR SUBCUT SCH ×3 (01:00→20:18)
[2022-06-02] MEDS: HYDROCODONE/ACETAMINOPHEN 10/325MG TABLET PO PRN ×3 (04:22→20:17)
[2022-06-02] MEDS: DIPHENHYDRAMINE 25MG CAPSULE PO PRN (04:26)
[2022-06-02] MEDS: GABAPENTIN 100MG CAPSULE PO SCH ×3 (06:08→22:00)
[2022-06-02] MEDS: CLONIDINE 0.2MG TABLET PO SCH ×3 (06:09→22:00)
[2022-06-02] MEDS: BLOOD SUGAR DIAGNOSTIC STRIP TEST SCH ×4 (06:30→21:05)
[2022-06-02 07:03] LABS: HEMATOCRIT. 32.9 % (36.0-48.0); HEMOGLOBIN. 10.1 g/dL (12.0-16.0); MEAN CORPUSCULAR HEMOGLOBIN 22.6 pg (28.0-32.0); MEAN PLATELET VOLUME 7.7 fl (7.4-10.4); PLATELET 422 x1000/uL (130-400); RED BLOOD CELL COUNT 4.45 mill/uL (4.2-5.4); RED CELL DISTRIBUTION WIDTH 15.7 % (11.6-14.6)
[2022-06-02 07:33] LABS: CHLORIDE 102 mEq/L (98-107)
[2022-06-02 08:00] VITALS: BP_SYST 65; BP_SYST 95; BP_DIAS 58
[2022-06-02] MEDS: INSULIN LISPRO 100 UNITS/ML SUBCUT SCH ×4 (08:26→20:23)
[2022-06-02] MEDS: AMLODIPINE 5MG TABLET PO SCH ×2 (09:00→17:00)
[2022-06-02] MEDS: LOSARTAN POTASSIUM 50 MG TABLET PO SCH ×2 (09:00→17:00)
[2022-06-02] MEDS: POLYETHYLENE GLYCOL 3350 (17GM) 1 DOSE PACK PO SCH (09:00)
[2022-06-02] MEDS: DOCUSATE SODIUM 100MG CAPSULE PO SCH ×2 (09:00→17:00)
[2022-06-02] MEDS: LACTULOSE 20G/30ML UDC PO SCH ×2 (09:55→17:00)
[2022-06-02] MEDS: METHYL SALICYLATE/MENTHOL CREAM 85GM TOP PRN (09:56)
[2022-06-02] MEDS: FAMOTIDINE 20MG TABLET PO SCH ×2 (09:56→20:17)
[2022-06-02] MEDS: ASCORBIC ACID 500 MG TABLET PO SCH (09:56)
[2022-06-02] MEDS: FERROUS SULFATE 325MG TABLET PO SCH ×3 (09:56→18:38)
[2022-06-02] MEDS: GUAIFENESIN 600MG ER TABLET PO SCH ×2 (09:56→20:17)
[2022-06-02] MEDS: LIDOCAINE 5% PATCH TOP SCH (09:57)
[2022-06-02] MEDS: INSULIN GLARGINE 100 UNITS/ML SUBCUT SCH ×2 (10:00→22:00)
[2022-06-02 12:14] LABS: NUCLEATED RED BLOOD CELLS 1 /100 WBC
[2022-06-02 12:15] LABS: PLATELET ESTIMATE INCREASED
[2022-06-02 19:06] LABS: 25-HYDROXY VITAMIN D3 < 1.0 ng/mL (.)
[2022-06-02] MEDS: ATORVASTATIN CALCIUM 10MG TABLET PO SCH (20:16)
[2022-06-02 22:53] VITALS: BP 96/54
[2022-06-03] MEDS: DIPHENHYDRAMINE 25MG CAPSULE PO PRN (01:53)
[2022-06-03] MEDS: GABAPENTIN 100MG CAPSULE PO SCH ×3 (06:00→22:12)
[2022-06-03] MEDS: CLONIDINE 0.2MG TABLET PO SCH ×3 (06:00→22:00)
[2022-06-03] MEDS: BLOOD SUGAR DIAGNOSTIC STRIP TEST SCH ×4 (06:30→21:11)
[2022-06-03 08:00] VITALS: BP 99/54
[2022-06-03] MEDS: INSULIN LISPRO 100 UNITS/ML SUBCUT SCH ×4 (09:00→21:00)
[2022-06-03] MEDS: POLYETHYLENE GLYCOL 3350 (17GM) 1 DOSE PACK PO SCH (09:00)
[2022-06-03] MEDS: FAMOTIDINE 20MG TABLET PO SCH ×2 (09:16→21:05)
[2022-06-03] MEDS: LACTULOSE 20G/30ML UDC PO SCH ×2 (09:17→17:21)
[2022-06-03] MEDS: ASCORBIC ACID 500 MG TABLET PO SCH (09:17)
[2022-06-03] MEDS: GUAIFENESIN 600MG ER TABLET PO SCH ×2 (09:17→21:05)
[2022-06-03] MEDS: DOCUSATE SODIUM 100MG CAPSULE PO SCH ×2 (09:17→17:21)
[2022-06-03] MEDS: FERROUS SULFATE 325MG TABLET PO SCH ×3 (09:17→17:25)
[2022-06-03] MEDS: HYDROCODONE/ACETAMINOPHEN 10/325MG TABLET PO PRN ×3 (09:20→17:23)
[2022-06-03] MEDS: AMLODIPINE 5MG TABLET PO SCH ×2 (09:21→17:22)
[2022-06-03] MEDS: ENOXAPARIN 30MG/0.3ML SYR SUBCUT SCH ×2 (09:22→22:12)
[2022-06-03] MEDS: LOSARTAN POTASSIUM 50 MG TABLET PO SCH ×2 (09:23→17:22)
[2022-06-03] MEDS: LIDOCAINE 5% PATCH TOP SCH (09:23)
[2022-06-03] MEDS: INSULIN GLARGINE 100 UNITS/ML SUBCUT SCH ×2 (11:11→22:28)
[2022-06-03] MEDS: ERGOCALCIFEROL 50000UNITS CAPSULE PO SCH (14:45)
[2022-06-03 20:00] VITALS: BP 93/54
[2022-06-03] MEDS: ATORVASTATIN CALCIUM 10MG TABLET PO SCH (21:05)
[2022-06-03 22:00] VITALS: BP 98/53
[2022-06-04] MEDS: GABAPENTIN 100MG CAPSULE PO SCH ×4 (06:00→21:19)
[2022-06-04] MEDS: CLONIDINE 0.2MG TABLET PO SCH ×3 (06:00→21:19)
[2022-06-04] MEDS: BLOOD SUGAR DIAGNOSTIC STRIP TEST SCH ×4 (06:30→21:00)
[2022-06-04 08:00] VITALS: BP 108/55
[2022-06-04] MEDS: POLYETHYLENE GLYCOL 3350 (17GM) 1 DOSE PACK PO SCH (09:00)
[2022-06-04] MEDS: INSULIN LISPRO 100 UNITS/ML SUBCUT SCH ×4 (09:00→21:00)
[2022-06-04] MEDS: FERROUS SULFATE 325MG TABLET PO SCH ×3 (09:01→17:00)
[2022-06-04] MEDS: DOCUSATE SODIUM 100MG CAPSULE PO SCH ×2 (09:01→17:50)
[2022-06-04] MEDS: GUAIFENESIN 600MG ER TABLET PO SCH ×2 (09:01→21:10)
[2022-06-04] MEDS: ASCORBIC ACID 500 MG TABLET PO SCH (09:01)
[2022-06-04] MEDS: FAMOTIDINE 20MG TABLET PO SCH ×2 (09:01→21:10)
[2022-06-04] MEDS: AMLODIPINE 5MG TABLET PO SCH ×2 (09:02→17:59)
[2022-06-04] MEDS: LACTULOSE 20G/30ML UDC PO SCH ×2 (09:02→17:50)
[2022-06-04] MEDS: LOSARTAN POTASSIUM 50 MG TABLET PO SCH ×2 (09:02→17:50)
[2022-06-04] MEDS: HYDROCODONE/ACETAMINOPHEN 10/325MG TABLET PO PRN ×3 (09:03→22:06)
[2022-06-04] MEDS: ENOXAPARIN 30MG/0.3ML SYR SUBCUT SCH ×2 (09:04→21:10)
[2022-06-04] MEDS: LIDOCAINE 5% PATCH TOP SCH (09:04)
[2022-06-04] MEDS: INSULIN GLARGINE 100 UNITS/ML SUBCUT SCH ×2 (11:02→22:15)
[2022-06-04] MEDS: ACETAMINOPHEN 325MG TABLET PO PRN (11:16)
[2022-06-04 20:00] VITALS: BP 101/76
[2022-06-04] MEDS: ATORVASTATIN CALCIUM 10MG TABLET PO SCH (21:10)
[2022-06-04] MEDS: METHYL SALICYLATE/MENTHOL CREAM 85GM TOP PRN (22:09)
[2022-06-04] MEDS: DIPHENHYDRAMINE 25MG CAPSULE PO PRN (23:57)
[2022-06-05] MEDS: HYDROCODONE/ACETAMINOPHEN 10/325MG TABLET PO PRN ×4 (04:29→17:32)
[2022-06-05] MEDS: GABAPENTIN 100MG CAPSULE PO SCH ×3 (05:54→20:38)
[2022-06-05] MEDS: CLONIDINE 0.2MG TABLET PO SCH ×3 (06:00→20:36)
[2022-06-05] MEDS: BLOOD SUGAR DIAGNOSTIC STRIP TEST SCH ×4 (06:17→21:00)
[2022-06-05 06:28] LABS: CHLORIDE 106 mEq/L (98-107)
[2022-06-05 06:31] LABS: HEMATOCRIT. 30.5 % (36.0-48.0); HEMOGLOBIN. 9.6 g/dL (12.0-16.0); MEAN CORPUSCULAR HEMOGLOBIN 22.8 pg (28.0-32.0); MEAN CORPUSCULAR VOLUME 72.7 fL (81.0-99.0); MEAN PLATELET VOLUME 8.1 fl (7.4-10.4); PLATELET 427 x1000/uL (130-400); RED BLOOD CELL COUNT 4.19 mill/uL (4.2-5.4); RED CELL DISTRIBUTION WIDTH 15.2 % (11.6-14.6)
[2022-06-05 08:00] VITALS: BP 137/71
[2022-06-05] MEDS: ASCORBIC ACID 500 MG TABLET PO SCH (08:48)
[2022-06-05] MEDS: GUAIFENESIN 600MG ER TABLET PO SCH ×2 (08:48→20:38)
[2022-06-05] MEDS: LOSARTAN POTASSIUM 50 MG TABLET PO SCH ×2 (08:48→17:31)
[2022-06-05] MEDS: FERROUS SULFATE 325MG TABLET PO SCH ×3 (08:48→17:00)
[2022-06-05] MEDS: DOCUSATE SODIUM 100MG CAPSULE PO SCH ×2 (08:48→17:31)
[2022-06-05] MEDS: FAMOTIDINE 20MG TABLET PO SCH ×2 (08:48→20:38)
[2022-06-05] MEDS: POLYETHYLENE GLYCOL 3350 (17GM) 1 DOSE PACK PO SCH (08:49)
[2022-06-05] MEDS: AMLODIPINE 5MG TABLET PO SCH ×2 (08:49→17:32)
[2022-06-05] MEDS: ENOXAPARIN 30MG/0.3ML SYR SUBCUT SCH ×2 (08:51→20:44)
[2022-06-05] MEDS: LACTULOSE 20G/30ML UDC PO SCH ×2 (08:51→17:33)
[2022-06-05] MEDS: INSULIN LISPRO 100 UNITS/ML SUBCUT SCH ×4 (08:52→20:45)
[2022-06-05] MEDS: LIDOCAINE 5% PATCH TOP SCH (08:52)
[2022-06-05] MEDS ORDERED: BACITRACIN 15GM TUBE TOP SCH (10:15)
[2022-06-05] MEDS: INSULIN GLARGINE 100 UNITS/ML SUBCUT SCH ×2 (10:39→22:00)
[2022-06-05] MEDS ORDERED: LIDOCAINE HCL 1% 20ML VIAL (Pyxis) INJ INFIL SCH (11:00)
[2022-06-05] MEDS: METHOCARBAMOL 500MG TABLET PO PRN (15:33)
[2022-06-05] MEDS: DIPHENHYDRAMINE 25MG CAPSULE PO PRN ×2 (15:33→20:36)
[2022-06-05 17:37] LABS: PLATELET ESTIMATE INCREASED
[2022-06-05 20:00] VITALS: BP 112/52
[2022-06-05] MEDS: HYDROCODONE/ACETAMINOPHEN 5/325MG TABLET PO PRN (20:37)
[2022-06-05] MEDS: ATORVASTATIN CALCIUM 10MG TABLET PO SCH (20:38)
[2022-06-06] MEDS: HYDROCODONE/ACETAMINOPHEN 10/325MG TABLET PO PRN ×5 (00:06→21:15)
[2022-06-06] MEDS: CLONIDINE 0.2MG TABLET PO SCH (06:00)
[2022-06-06] MEDS: GABAPENTIN 100MG CAPSULE PO SCH ×3 (06:00→21:05)
[2022-06-06] MEDS: BLOOD SUGAR DIAGNOSTIC STRIP TEST SCH ×4 (06:17→20:43)
[2022-06-06 08:00] VITALS: BP 108/50
[2022-06-06] MEDS: INSULIN LISPRO 100 UNITS/ML SUBCUT SCH ×4 (09:00→20:44)
[2022-06-06] MEDS: LIDOCAINE 5% PATCH TOP SCH (09:29)
[2022-06-06] MEDS: LACTULOSE 20G/30ML UDC PO SCH ×4 (09:29→20:47)
[2022-06-06] MEDS: POLYETHYLENE GLYCOL 3350 (17GM) 1 DOSE PACK PO SCH (09:29)
[2022-06-06] MEDS: FAMOTIDINE 20MG TABLET PO SCH ×2 (09:29→21:05)
[2022-06-06] MEDS: AMLODIPINE 5MG TABLET PO SCH ×2 (09:30→17:01)
[2022-06-06] MEDS: FERROUS SULFATE 325MG TABLET PO SCH ×3 (09:30→17:01)
[2022-06-06] MEDS: DOCUSATE SODIUM 100MG CAPSULE PO SCH ×2 (09:30→16:43)
[2022-06-06] MEDS: GUAIFENESIN 600MG ER TABLET PO SCH ×2 (09:30→21:05)
[2022-06-06] MEDS: LOSARTAN POTASSIUM 50 MG TABLET PO SCH (09:30)
[2022-06-06] MEDS: ASCORBIC ACID 500 MG TABLET PO SCH (09:31)
[2022-06-06] MEDS: ENOXAPARIN 30MG/0.3ML SYR SUBCUT SCH ×2 (09:34→21:05)
[2022-06-06] MEDS: INSULIN GLARGINE 100 UNITS/ML SUBCUT SCH ×2 (09:57→21:21)
[2022-06-06] MEDS: CLONIDINE 0.1MG TABLET PO SCH ×2 (13:10→21:06)
[2022-06-06 20:00] VITALS: BP 107/47
[2022-06-06] MEDS: ATORVASTATIN CALCIUM 10MG TABLET PO SCH (21:05)
[2022-06-07] MEDS: DIPHENHYDRAMINE 25MG CAPSULE PO PRN ×3 (04:35→23:05)
[2022-06-07] MEDS: HYDROCODONE/ACETAMINOPHEN 10/325MG TABLET PO PRN ×4 (04:36→20:31)
[2022-06-07] MEDS: BLOOD SUGAR DIAGNOSTIC STRIP TEST SCH ×4 (06:02→20:33)
[2022-06-07] MEDS: GABAPENTIN 100MG CAPSULE PO SCH ×3 (06:03→22:00)
[2022-06-07] MEDS: CLONIDINE 0.1MG TABLET PO SCH ×3 (06:03→22:00)
[2022-06-07 08:00] VITALS: BP 120/56
[2022-06-07] MEDS: ENOXAPARIN 30MG/0.3ML SYR SUBCUT SCH ×2 (08:55→20:31)
[2022-06-07] MEDS: GUAIFENESIN 600MG ER TABLET PO SCH ×2 (08:55→20:34)
[2022-06-07] MEDS: FERROUS SULFATE 325MG TABLET PO SCH ×3 (08:55→16:17)
[2022-06-07] MEDS: LIDOCAINE 5% PATCH TOP SCH (08:56)
[2022-06-07] MEDS: LOSARTAN POTASSIUM 50 MG TABLET PO SCH (08:56)
[2022-06-07] MEDS: INSULIN LISPRO 100 UNITS/ML SUBCUT SCH ×4 (08:57→21:00)
[2022-06-07] MEDS: DOCUSATE SODIUM 100MG CAPSULE PO SCH ×2 (09:00→16:12)
[2022-06-07] MEDS: ASCORBIC ACID 500 MG TABLET PO SCH (09:00)
[2022-06-07] MEDS: LACTULOSE 20G/30ML UDC PO SCH ×2 (09:00→16:12)
[2022-06-07] MEDS: POLYETHYLENE GLYCOL 3350 (17GM) 1 DOSE PACK PO SCH (09:00)
[2022-06-07] MEDS: AMLODIPINE 5MG TABLET PO SCH ×2 (09:02→16:12)
[2022-06-07] MEDS: FAMOTIDINE 20MG TABLET PO SCH ×2 (09:02→20:30)
[2022-06-07] MEDS: INSULIN GLARGINE 100 UNITS/ML SUBCUT SCH ×2 (10:00→23:31)
[2022-06-07 19:56] VITALS: BP 129/61
[2022-06-07] MEDS: ATORVASTATIN CALCIUM 10MG TABLET PO SCH (20:30)
[2022-06-08] MEDS: HYDROCODONE/ACETAMINOPHEN 10/325MG TABLET PO PRN ×4 (00:31→18:47)
[2022-06-08] MEDS: GABAPENTIN 100MG CAPSULE PO SCH ×3 (06:00→22:21)
[2022-06-08] MEDS: BLOOD SUGAR DIAGNOSTIC STRIP TEST SCH ×4 (06:30→21:00)
[2022-06-08] MEDS: CLONIDINE 0.1MG TABLET PO SCH ×3 (06:36→22:20)
[2022-06-08 08:00] VITALS: BP 109/46
[2022-06-08] MEDS: LIDOCAINE 5% PATCH TOP SCH (08:56)
[2022-06-08] MEDS: FAMOTIDINE 20MG TABLET PO SCH ×2 (08:57→22:21)
[2022-06-08] MEDS: GUAIFENESIN 600MG ER TABLET PO SCH ×2 (08:57→22:21)
[2022-06-08] MEDS: DIPHENHYDRAMINE 25MG CAPSULE PO PRN ×2 (08:57→15:55)
[2022-06-08] MEDS: ASCORBIC ACID 500 MG TABLET PO SCH (08:57)
[2022-06-08] MEDS: FERROUS SULFATE 325MG TABLET PO SCH ×3 (08:57→17:00)
[2022-06-08] MEDS: DOCUSATE SODIUM 100MG CAPSULE PO SCH ×2 (08:57→17:00)
[2022-06-08] MEDS: AMLODIPINE 5MG TABLET PO SCH ×2 (08:58→17:00)
[2022-06-08] MEDS: ENOXAPARIN 30MG/0.3ML SYR SUBCUT SCH ×2 (08:58→22:20)
[2022-06-08] MEDS: INSULIN LISPRO 100 UNITS/ML SUBCUT SCH ×4 (08:58→21:00)
[2022-06-08] MEDS: LOSARTAN POTASSIUM 50 MG TABLET PO SCH (08:59)
[2022-06-08] MEDS: POLYETHYLENE GLYCOL 3350 (17GM) 1 DOSE PACK PO SCH (08:59)
[2022-06-08] MEDS: LACTULOSE 20G/30ML UDC PO SCH ×2 (08:59→17:00)
[2022-06-08] MEDS: INSULIN GLARGINE 100 UNITS/ML SUBCUT SCH ×2 (10:00→22:39)
[2022-06-08 20:00] VITALS: BP 159/90
[2022-06-08] MEDS: ATORVASTATIN CALCIUM 10MG TABLET PO SCH (22:21)
[2022-06-08] MEDS: HYDROCODONE/ACETAMINOPHEN 5/325MG TABLET PO PRN (23:10)
[2022-06-09] MEDS: DIPHENHYDRAMINE 25MG CAPSULE PO PRN ×2 (00:49→06:55)
[2022-06-09] MEDS: METHYL SALICYLATE/MENTHOL CREAM 85GM TOP PRN ×2 (04:55→23:02)
[2022-06-09] MEDS: CLONIDINE 0.1MG TABLET PO SCH ×3 (06:38→21:06)
[2022-06-09] MEDS: GABAPENTIN 100MG CAPSULE PO SCH ×3 (06:38→21:06)
[2022-06-09 08:00] VITALS: BP 126/62
[2022-06-09] MEDS: LIDOCAINE 5% PATCH TOP SCH (08:47)
[2022-06-09] MEDS: ENOXAPARIN 30MG/0.3ML SYR SUBCUT SCH ×2 (08:47→20:36)
[2022-06-09] MEDS: ASCORBIC ACID 500 MG TABLET PO SCH (08:48)
[2022-06-09] MEDS: FAMOTIDINE 20MG TABLET PO SCH ×2 (08:48→20:35)
[2022-06-09] MEDS: GUAIFENESIN 600MG ER TABLET PO SCH ×2 (08:48→20:36)
[2022-06-09] MEDS: LOSARTAN POTASSIUM 50 MG TABLET PO SCH (08:48)
[2022-06-09] MEDS: AMLODIPINE 5MG TABLET PO SCH ×2 (08:48→16:25)
[2022-06-09] MEDS: DOCUSATE SODIUM 100MG CAPSULE PO SCH ×2 (08:48→16:25)
[2022-06-09] MEDS: INSULIN LISPRO 100 UNITS/ML SUBCUT SCH ×4 (09:00→20:59)
[2022-06-09] MEDS: LACTULOSE 20G/30ML UDC PO SCH ×2 (09:00→16:21)
[2022-06-09] MEDS: POLYETHYLENE GLYCOL 3350 (17GM) 1 DOSE PACK PO SCH (09:00)
[2022-06-09] MEDS: FERROUS SULFATE 325MG TABLET PO SCH ×3 (09:07→16:25)
[2022-06-09] MEDS: INSULIN GLARGINE 100 UNITS/ML SUBCUT SCH ×2 (09:51→21:08)
[2022-06-09] MEDS: BLOOD SUGAR DIAGNOSTIC STRIP TEST SCH ×3 (12:00→20:59)
[2022-06-09] MEDS: HYDROCODONE/ACETAMINOPHEN 5/325MG TABLET PO PRN (12:41)
[2022-06-09 20:00] VITALS: BP 150/73
[2022-06-09] MEDS: ATORVASTATIN CALCIUM 10MG TABLET PO SCH (20:35)
[2022-06-09] MEDS: ONDANSETRON HCL 4MG TABLET PO PRN (20:35)
[2022-06-09] MEDS ORDERED: NA PHOS,M-B/NA PHOS,DI-BA ENEMA 118ML PR NR (22:00)
[2022-06-09] MEDS: HYDROCODONE/ACETAMINOPHEN 10/325MG TABLET PO PRN (23:01)
[2022-06-10] MEDS: METHOCARBAMOL 500MG TABLET PO PRN ×2 (02:13→23:29)
[2022-06-10] MEDS: CLONIDINE 0.1MG TABLET PO SCH ×3 (05:17→21:53)
[2022-06-10] MEDS: GABAPENTIN 100MG CAPSULE PO SCH ×3 (05:17→21:45)
[2022-06-10] MEDS: HYDROCODONE/ACETAMINOPHEN 10/325MG TABLET PO PRN ×4 (05:18→21:51)
[2022-06-10] MEDS: BLOOD SUGAR DIAGNOSTIC STRIP TEST SCH ×4 (06:16→20:41)
[2022-06-10] MEDS: METHYL SALICYLATE/MENTHOL CREAM 85GM TOP PRN (06:17)
[2022-06-10 06:36] LABS: BASOPHILS % 0.5 % (0.0-2.0); EOSINOPHILS % 1.6 % (0.0-5.0); HEMATOCRIT. 32.8 % (36.0-48.0); HEMOGLOBIN. 10.3 g/dL (12.0-16.0); LYMPHOCYTES % 31.9 % (20.0-50.0); MEAN CORPUSCULAR HEMOGLOBIN 22.7 pg (28.0-32.0); MEAN CORPUSCULAR VOLUME 72.3 fL (81.0-99.0); MEAN PLATELET VOLUME 7.8 fl (7.4-10.4); MONOCYTES % 14.5 % (2.0-8.0); NEUTROPHILS % 51.5 % (40.0-76.0); PLATELET 537 x1000/uL (130-400); RED BLOOD CELL COUNT 4.54 mill/uL (4.2-5.4); RED CELL DISTRIBUTION WIDTH 15.5 % (11.6-14.6)
[2022-06-10] MEDS: INSULIN LISPRO 100 UNITS/ML SUBCUT SCH ×4 (06:49→20:42)
[2022-06-10 08:00] VITALS: BP 125/68
[2022-06-10 08:28] LABS: CHLORIDE 102 mEq/L (98-107)
[2022-06-10 08:51] LABS: PHOSPHORUS 4.6 mg/dL (2.5-4.9)
[2022-06-10] MEDS: GUAIFENESIN 600MG ER TABLET PO SCH ×3 (09:00→21:44)
[2022-06-10] MEDS: LACTULOSE 20G/30ML UDC PO SCH ×2 (09:00→17:51)
[2022-06-10] MEDS ORDERED: POTASSIUM CHLORIDE 20MEQ TABLET SR PO SCH (09:00)
[2022-06-10] MEDS: FERROUS SULFATE 325MG TABLET PO SCH ×3 (09:00→17:51)
[2022-06-10] MEDS: ASCORBIC ACID 500 MG TABLET PO SCH (09:17)
[2022-06-10] MEDS: ERGOCALCIFEROL 50000UNITS CAPSULE PO SCH (09:17)
[2022-06-10] MEDS: POLYETHYLENE GLYCOL 3350 (17GM) 1 DOSE PACK PO SCH (09:17)
[2022-06-10] MEDS: DOCUSATE SODIUM 100MG CAPSULE PO SCH ×2 (09:18→17:51)
[2022-06-10] MEDS: FAMOTIDINE 20MG TABLET PO SCH ×2 (09:18→21:44)
[2022-06-10] MEDS: AMLODIPINE 5MG TABLET PO SCH ×2 (09:18→17:00)
[2022-06-10] MEDS: LOSARTAN POTASSIUM 50 MG TABLET PO SCH (09:19)
[2022-06-10] MEDS: ENOXAPARIN 30MG/0.3ML SYR SUBCUT SCH ×2 (09:19→21:45)
[2022-06-10] MEDS: LIDOCAINE 5% PATCH TOP SCH (09:21)
[2022-06-10] MEDS: INSULIN GLARGINE 100 UNITS/ML SUBCUT SCH ×2 (09:24→21:53)
[2022-06-10] MEDS ORDERED: MAGNESIUM 4 G PREMIX 100 ML IV ONE (10:30)
[2022-06-10] MEDS ORDERED: MAGNESIUM 2 G PREMIX 50 ML IV SCH ×2 (11:00)
[2022-06-10] MEDS ORDERED: LORAZEPAM 0.5MG TABLET PO PRN (12:00)
[2022-06-10] MEDS: DIPHENHYDRAMINE 25MG CAPSULE PO PRN (12:23)
[2022-06-10] MEDS: MAGNESIUM OXIDE 400MG TABLET PO SCH (17:51)
[2022-06-10 20:00] VITALS: BP 126/66
[2022-06-10] MEDS: ATORVASTATIN CALCIUM 10MG TABLET PO SCH (21:44)
[2022-06-10] MEDS: ACETAMINOPHEN 325MG TABLET PO PRN (23:29)
[2022-06-11 00:14] VITALS: BP 120/58
[2022-06-11] MEDS: DIPHENHYDRAMINE 25MG CAPSULE PO PRN (00:33)
[2022-06-11] MEDS: GABAPENTIN 100MG CAPSULE PO SCH ×3 (05:11→14:41)
[2022-06-11] MEDS: HYDROCODONE/ACETAMINOPHEN 10/325MG TABLET PO PRN ×4 (05:11→20:59)
[2022-06-11] MEDS: CLONIDINE 0.1MG TABLET PO SCH (05:11)
[2022-06-11] MEDS: BLOOD SUGAR DIAGNOSTIC STRIP TEST SCH ×4 (06:38→21:04)
[2022-06-11 08:00] VITALS: BP 112/67
[2022-06-11] MEDS: INSULIN LISPRO 100 UNITS/ML SUBCUT SCH ×4 (09:00→21:00)
[2022-06-11] MEDS: GUAIFENESIN 600MG ER TABLET PO SCH ×3 (09:00→21:19)
[2022-06-11] MEDS: POLYETHYLENE GLYCOL 3350 (17GM) 1 DOSE PACK PO SCH (09:00)
[2022-06-11] MEDS: LACTULOSE 20G/30ML UDC PO SCH ×2 (09:27→17:19)
[2022-06-11] MEDS: FAMOTIDINE 20MG TABLET PO SCH (09:28)
[2022-06-11] MEDS: MAGNESIUM OXIDE 400MG TABLET PO SCH ×3 (09:28→17:24)
[2022-06-11] MEDS: FERROUS SULFATE 325MG TABLET PO SCH ×3 (09:28→17:00)
[2022-06-11] MEDS: ASCORBIC ACID 500 MG TABLET PO SCH (09:28)
[2022-06-11] MEDS: DOCUSATE SODIUM 100MG CAPSULE PO SCH ×2 (09:28→17:19)
[2022-06-11] MEDS: LOSARTAN POTASSIUM 50 MG TABLET PO SCH (09:33)
[2022-06-11] MEDS: AMLODIPINE 5MG TABLET PO SCH ×2 (09:33→17:20)
[2022-06-11] MEDS: ENOXAPARIN 30MG/0.3ML SYR SUBCUT SCH ×2 (09:34→21:10)
[2022-06-11] MEDS: LIDOCAINE 5% PATCH TOP SCH (09:36)
[2022-06-11] MEDS: INSULIN GLARGINE 100 UNITS/ML SUBCUT SCH ×2 (11:14→21:14)
[2022-06-11 20:00] VITALS: BP 120/58
[2022-06-11] MEDS: ATORVASTATIN CALCIUM 10MG TABLET PO SCH (20:58)
[2022-06-12] MEDS: ACETAMINOPHEN 325MG TABLET PO PRN ×3 (01:51→19:30)
[2022-06-12] MEDS: DIPHENHYDRAMINE 25MG CAPSULE PO PRN ×3 (01:51→19:30)
[2022-06-12] MEDS: HYDROCODONE/ACETAMINOPHEN 10/325MG TABLET PO PRN ×4 (04:15→21:15)
[2022-06-12] MEDS: BLOOD SUGAR DIAGNOSTIC STRIP TEST SCH ×3 (05:55→21:00)
[2022-06-12] MEDS: GABAPENTIN 100MG CAPSULE PO SCH ×3 (05:55→20:54)
[2022-06-12] MEDS: INSULIN LISPRO 100 UNITS/ML SUBCUT SCH ×3 (06:07→21:00)
[2022-06-12 08:00] VITALS: BP 136/73
[2022-06-12] MEDS: LACTULOSE 20G/30ML UDC PO SCH ×2 (08:57→17:00)
[2022-06-12] MEDS: ASCORBIC ACID 500 MG TABLET PO SCH (08:58)
[2022-06-12] MEDS: FAMOTIDINE 20MG TABLET PO SCH (08:58)
[2022-06-12] MEDS: DOCUSATE SODIUM 100MG CAPSULE PO SCH ×2 (08:58→17:21)
[2022-06-12] MEDS: FERROUS SULFATE 325MG TABLET PO SCH ×3 (08:58→17:21)
[2022-06-12] MEDS: AMLODIPINE 5MG TABLET PO SCH ×2 (08:59→17:00)
[2022-06-12] MEDS: LOSARTAN POTASSIUM 50 MG TABLET PO SCH (08:59)
[2022-06-12] MEDS: POLYETHYLENE GLYCOL 3350 (17GM) 1 DOSE PACK PO SCH (09:00)
[2022-06-12] MEDS: ENOXAPARIN 30MG/0.3ML SYR SUBCUT SCH ×2 (09:00→20:55)
[2022-06-12] MEDS: LIDOCAINE 5% PATCH TOP SCH (09:01)
[2022-06-12] MEDS: INSULIN GLARGINE 100 UNITS/ML SUBCUT SCH ×2 (11:04→21:21)
[2022-06-12 16:51] LABS: CHLORIDE 103 mEq/L (98-107)
[2022-06-12] MEDS: MAGNESIUM OXIDE 400MG TABLET PO SCH (17:00)
[2022-06-12 20:00] VITALS: BP 121/52
[2022-06-12] MEDS: ATORVASTATIN CALCIUM 10MG TABLET PO SCH (20:54)
[2022-06-12] MEDS: GUAIFENESIN 600MG ER TABLET PO SCH (20:54)
[2022-06-13] MEDS: ACETAMINOPHEN 325MG TABLET PO PRN (00:46)
[2022-06-13] MEDS: HYDROCODONE/ACETAMINOPHEN 10/325MG TABLET PO PRN (01:49)
[2022-06-13] MEDS: GABAPENTIN 100MG CAPSULE PO SCH (06:00)
[2022-06-13] MEDS: BLOOD SUGAR DIAGNOSTIC STRIP TEST SCH (06:45)
[2022-06-13] MEDS: INSULIN LISPRO 100 UNITS/ML SUBCUT SCH (06:45)
[2022-06-13 08:00] VITALS: BP 118/68
[2022-06-13] MEDS: ASCORBIC ACID 500 MG TABLET PO SCH (09:00)
[2022-06-13] MEDS: POLYETHYLENE GLYCOL 3350 (17GM) 1 DOSE PACK PO SCH (09:00)
[2022-06-13] MEDS: GUAIFENESIN 600MG ER TABLET PO SCH (09:00)
[2022-06-13] MEDS: LOSARTAN POTASSIUM 50 MG TABLET PO SCH ×2 (09:00→09:03)
[2022-06-13] MEDS: FERROUS SULFATE 325MG TABLET PO SCH ×2 (09:00→09:03)
[2022-06-13] MEDS: MAGNESIUM OXIDE 400MG TABLET PO SCH (09:00)
[2022-06-13] MEDS: LACTULOSE 20G/30ML UDC PO SCH (09:00)
[2022-06-13] MEDS: AMLODIPINE 5MG TABLET PO SCH (09:06)
[2022-06-13] MEDS: DOCUSATE SODIUM 100MG CAPSULE PO SCH (09:06)
[2022-06-13] MEDS: ONDANSETRON HCL 4MG TABLET PO PRN (09:07)
[2022-06-13] MEDS: FAMOTIDINE 20MG TABLET PO SCH (09:08)
[2022-06-13] MEDS: LIDOCAINE 5% PATCH TOP SCH (09:10)
[2022-06-13] MEDS ORDERED: HYDROCODONE/ACETAMINOPHEN 10/325MG TABLET PO PRN (09:15)
[2022-06-13] MEDS: ENOXAPARIN 30MG/0.3ML SYR SUBCUT SCH (09:17)
[2022-06-13 09:54] VITALS: BP 118/68
[2022-06-13] MEDS ORDERED: AMLO5TAB88 PO (11:08)
[2022-06-13] MEDS ORDERED: DOCU-150 PO (11:08)
[2022-06-13] MEDS ORDERED: LOSA50TA3 PO (11:08)
[2022-06-13] MEDS ORDERED: GABA-529 PO (11:08)
[2022-06-13] MEDS ORDERED: LANTUSUD SUBCUT (11:08)
== END 2022-06-13 12:15 | disposition home or self-care (01) | DRG 552 ==
PROVIDERS: ADMIT Physical Medicine & Rehabilitation Spinal Cord Injury Medicine; ATTEND Internal Medicine
PROC: 0HBRXZZ Excision of Toe Nail, External Approach (ICD-10-PCS; principal; 2022-06-05)
DX: M48.04 Spinal stenosis, thoracic region (principal); E87.1 Hypo-osmolality and hyponatremia; L02.612 Cutaneous abscess of left foot; M51.04 Intervertebral disc disorders with myelopathy, thoracic region; D50.9 Iron deficiency anemia, unspecified; E11.43 Type 2 diabetes mellitus with diabetic autonomic (poly)neuropathy; E66.9 Obesity, unspecified; E78.5 Hyperlipidemia, unspecified; F41.9 Anxiety disorder, unspecified; I10 Essential (primary) hypertension; J45.909 Unspecified asthma, uncomplicated; K31.84 Gastroparesis; L60.0 Ingrowing nail; L03.032 Cellulitis of left toe; K56.41 Fecal impaction; E83.42 Hypomagnesemia; M19.012 Primary osteoarthritis, left shoulder; R53.81 Other malaise; Z99.3 Dependence on wheelchair; Z82.49 Family history of ischemic heart disease and other diseases of the circulatory system; Z79.84 Long term (current) use of oral hypoglycemic drugs; Z79.4 Long term (current) use of insulin; Z79.899 Other long term (current) drug therapy; Z79.82 Long term (current) use of aspirin; Z68.37 Body mass index [BMI] 37.0-37.9, adult; R26.9 Unspecified abnormalities of gait and mobility
CPT/HCPCS: 36415; 71045; 73060; 73090; 74018; 80048; 80053; 81003; 82306; 82607; 82728; 82746; 82962; 83540; 83550; 83735; 84100; 84134; 84443; 85025; 92523; 93970; 93971; 97110; 97112; 97162; 97165; 97530; 97535; A6261; C1893; J1200; J1650; J1815; J2270; J2765; J3475; J3490; J8597; Q0162; Q0163